=== PATIENT | female | born 1985 | race Caucasian/White ===

== ENCOUNTER 2017-07-25 13:15 | Day surgery (SDC) | payer BC ==
[2017-07-25] MEDS ORDERED: MIDAZOLAM 1 MG/ML 2 ML INJ ×2 (14:42→14:43)
[2017-07-25] MEDS ORDERED: FENTAnyl 50 MCG/ML VIAL (14:43)
== END 2017-07-25 15:38 | disposition home or self-care (01) ==
LOC: SDS 13:15 → GIL 15:38
DX: K59.00 Constipation, unspecified (principal); R10.9 Unspecified abdominal pain
CPT/HCPCS: 45378; 84703

== ENCOUNTER → 2017-11-14 | Outpatient (CLI) | payer BC | END | disposition home or self-care (01) | LOC: HKI 09:25 | DX: M65.4 Radial styloid tenosynovitis [de Quervain] (principal) | CPT/HCPCS: 73110; 73110-RT ==